=== PATIENT | female | born 2000 | race Caucasian/White ===

== ENCOUNTER 2022-10-20 00:36 | Emergency (ER) | payer OTHER ==
[~2022-10-20] VITALS: Ht 154.9 cm; Wt 61.4 kg
[2022-10-20] MEDS ORDERED: IBUPROFEN 600 MG TABLET PO ONE (02:15)
[2022-10-20 02:45] VITALS: BP 112/77
== END 2022-10-20 04:17 | disposition home or self-care (01) ==
LOC: EMS 00:39
DX: R41.82 Altered mental status, unspecified (principal); F10.129 Alcohol abuse with intoxication, unspecified; Z98.890 Other specified postprocedural states; Y90.9 Presence of alcohol in blood, level not specified
CPT/HCPCS: 99283